=== PATIENT | male | born 1960 | race African-American/Black ===

== ENCOUNTER → 2017-09-08 | Outpatient (CLI) | payer OTHER ==
--- NOTE | 2017-09-08 15:55 | CT ---
EXAMINATION TYPE: CT chest abdomen w con DATE OF EXAM: 09/08/2017 INDICATION: Aortic Anuerysm COMPARISON: NONE CT DLP: 1334 mGycm CONTRAST: Performed without Oral Contrast and with IV Contrast, patient injected with 100 mL of Isovue 370. TECHNIQUE: Axial images at 5 mm thick sections. Reconstructed images in the coronal plane. Delayed images through the kidneys. FINDINGS: CT CHEST: Portion of the thyroid visualized is normal. No suspicious lung nodules or focal infiltrates are present. No enlarged mediastinal or hilar adenopathy is evident. The ascending aorta diameter at the level of the main pulmonary artery is 4.5 cm. Maximum AP diamete r of the aorta near the proximal aortic arch is 5.0 cm. Aorta tapers normally through the aortic arch and descending thoracic aorta. No dissections are identified. The main pulmonary artery diameter at the bifurcation is 2.[address] ABDOMEN: Liver: Normal Spleen: Normal Pancreas: Normal Adrenal glands: The adrenal glands are normal. Gallbladder: Small amount fluid may surround the gallbladder. The gallbladder is decompressed. Correl ate for cholecystitis. Kidneys: No masses are evident. No hydronephrosis is present. No cysts are present. There may be a nonobstructing renal stone in the anterior left mid kidney. Delayed images obtained through the kidn eys are unremarkable. Aorta: Vascular calcification is within the aorta. The ascending aorta diameter at the level of the main pulmonary artery is 4.5 cm. Maximum AP diameter of the aorta near the proximal aortic arch is 5 .0 cm. Aorta tapers normally through the aortic arch and descending thoracic aorta. No dissections ar e identified. Aorta tapers normally through the abdomen and bifurcates into common iliac arteries. Inferior vena cava: Normal. CT PELVIS: Loops of bowel within the abdomen and pelvis are normal. IMPRESSIONS: 1. Ascending thoracic aortic aneurysm measuring 5.0 cm in maximum AP diameter in the distal ascending aorta. The descending thoracic aorta and the abdominal aorta taper normally throughout the course wi thout aneurysmal dilatation. 2. Clinical consideration for acute cholecystitis is recommended.
== END | disposition home or self-care (01) ==
LOC: RADCTMAIN 14:56
PROVIDERS: ATTEND Internal Medicine Clinical Cardiac Electrophysiology
DX: I71.2 Thoracic aortic aneurysm, without rupture (principal)
CPT/HCPCS: 71260; 74160; Q9967

== ENCOUNTER 2019-10-17 15:44 | Emergency (ER) | payer OTHER ==
[2019-10-17 15:50] VITALS: RESP 18; TEMP 97.9
[2019-10-17] MEDS ORDERED: AZITHROMYCIN 500 MG TAB PO STA (16:02)
[2019-10-17] MEDS ORDERED: cefTRIAXone 250 MG VIAL IM STA (16:02)
[2019-10-17 16:24] VITALS: BP 122/89; PULSE 90
[2019-10-17 16:53] LABS: Appearance,Urine Cloudy (Clear); Bilirubin,Urine Negative (Negative); Blood,Urine Small (Negative); Budding Yeast,Urine Occasional /hpf; Color,Urine Yellow; Glucose,Urine (UA) Negative (Negative); Hyaline Casts,Urine 7 /lpf (0-2); Ketones,Urine Negative (Negative); Leukocyte Esterase,Urine Large (Negative); Mucus,Urine Rare /hpf; Nitrite,Urine Negative (Negative); Protein,Urine 1+ (Negative); RBC,Urine 18 /hpf (0-5); Specific Gravity,Urine 1.034 (1.001-1.035); Squamous Epithelial Cell,Urine 3 /hpf (0-4); WBC,Urine >182 /hpf (0-5)
[2019-10-17] MEDS ORDERED: CEPHALEXIN 500MG STARTER PACK 4 CAP BTL PO STA (17:04)
--- NOTE | 2019-10-17 17:22 | ED ---
General Adult HPI - General Chief complaint: Urogenital Stated complaint: nausea,UTI Time Seen by Provider: 10/17/19 15:51 Source: patient, RN notes reviewed Mode of arrival: ambulatory Limitations: no limitations - History of Present Illness Initial comments: 59-year-old male presents to the emergency department for a chief complaint of dysuria. Patient has a history of hyperlipidemia, hypertension. Patient states 3 days ago he had sexual intercourse with a new partner. States that he believes he got something from her. According to triage note patient also complained of dizziness however when I evaluated him he completely denies any symptoms of dizziness or any other constitutional symptoms. He denies fevers or chills. Denies any testicular or abdominal pain. Denies any discharge.Patient has no other complaints at this time including shortness of breath, chest pain, abdominal pain, nausea or vomiting, headache, or visual changes. - Related Data Home Medications Medication Instructions Recorded Confirmed Topiramate [Topamax] 25 mg PO BID 01/21/14 01/21/14 traZODone HCL [Desyrel] 100 mg PO HS 01/21/14 01/21/14 Amoxicillin 500 mg PO TID 01/22/14 01/22/14 Previous Rx's Medication Instructions Recorded Hydrochlorothiazide [Hydrodiuril] 25 mg PO DAILY #30 tab 01/26/14 Labetalol [Trandate] 200 mg PO BID #60 tab 01/26/14 Lisinopril [Zestril] 20 mg PO BID #30 tab 01/26/14 amLODIPine [Norvasc] 10 mg PO DAILY #30 tab 01/26/14 Cephalexin [Keflex] 500 mg PO Q8H 10 Days #30 cap 10/17/19 Allergies Allergy/AdvReac Type Severity Reaction Status Date / Time No Known Allergies Allergy Verified 01/21/14 17:53 Review of Systems ROS Statement: Those systems with pertinent positive or pertinent negative responses have been documented in the HPI. ROS Other: All systems not noted in ROS Statement are negative. Past Medical History Past Medical History: Hyperlipidemia, Hypertension History of Any Multi-Drug Resistant Organisms: None Reported Past Surgical History: Back Surgery Past Anesthesia/Blood Transfusion Reactions: No Reported Reaction Past Psychological History: No Psychological Hx Reported Smoking Status: Never smoker Past Alcohol Use History: None Reported Past Drug Use History: None Reported General Exam Limitations: no limitations General appearance: alert, in no apparent distress Head exam: Present: atraumatic, normocephalic, normal inspection Eye exam: Present: normal appearance, PERRL, EOMI. Absent: scleral icterus, conjunctival injection, periorbital swelling ENT exam: Present: normal exam, mucous membranes moist Neck exam: Present: normal inspection, full ROM. Absent: tenderness, meningismus, lymphadenopathy Respiratory exam: Present: normal lung sounds bilaterally. Absent: respiratory distress, wheezes, rales, rhonchi, stridor Cardiovascular Exam: Present: regular rate, normal rhythm, normal heart sounds. Absent: systolic murmur, diastolic murmur, rubs, gallop, clicks GI/Abdominal exam: Present: soft, normal bowel sounds. Absent: distended, tenderness, guarding, rebound, rigid Back exam: Absent: CVA tenderness (R), CVA tenderness (L) Neurological exam: Present: alert Course Vital Signs 10/17/19 10/17/19 15:46 16:22 Temperature 97.9 F Pulse Rate 76 90 Respiratory 18 18 Rate Blood Pressure 124/73 122/89 O2 Sat by Pulse 98 99 Oximetry Medical Decision Making - Medical Decision Making Vitals are stable. Physical exam is unremarkable. Patient does have 182 white blood cells with white blood cell clumps. Culture pending. Patient started on Keflex. Patient also wanted to be treated empirically for gonorrhea and chlamydia. And was given IM Rocephin and azithromycin. Gonorrhea Chlamydia and Trichomonas testing pending. Patient was given a dose of Keflex here in the emergency department. Will follow up with primary care and return for any worsening symptoms. - Lab Data Lab Results 10/17/19 Range/Units 16:00 Urine Color Yellow Urine Appearance Cloudy (Clear) Urine pH 6.0 (5.0-8.0) Ur Specific [place] 1.034 (1.001-1.035) Urine Protein 1+ H (Negative) Urine Glucose (UA) Negative (Negative) Urine Ketones Negative (Negative) Urine Blood Small H (Negative) Urine Nitrite Negative (Negative) Urine Bilirubin Negative (Negative) Urine Urobilinogen 2.0 (<2.0) mg/dL Ur Leukocyte Esterase Large H (Negative) Urine RBC 18 H (0-5) /hpf Urine WBC >182 H (0-5) /hpf Urine WBC Clumps Few H (None) /hpf Ur Squamous Epith Cells 3 (0-4) /hpf Hyaline Casts 7 H (0-2) /lpf Urine Mucus Rare H (None) /hpf Urine Yeast (Budding) Occasional H (None) /hpf Disposition Clinical Impression: Dysuria, Urinary tract infection Disposition: HOME SELF-CARE Condition: Good Instructions (If sedation given, give patient instructions): Urinary Tract Infection in Men (ED), Safe Sex (ED) Additional Instructions: Please follow up with primary care in 1-2 days. Follow up on culture results in the next few days as well. You will get a call if these are positive. If they're negative and you would still like to talk to someone you can call the emergency department and ask to speak to the follow-up nurse. If you have any worsening symptoms return to the emergency department. Prescriptions: Cephalexin [Keflex] 500 mg PO Q8H 10 Days #30 cap Is patient prescribed a controlled substance at d/c from ED?: No Referrals: Bella Mcmanus MD [Primary Care Provider] - 1-2 days Time of Disposition: 17:20
[2019-10-18 14:22] LABS: C. trachomatis,PCR Negative (Neg,Equiv); Chlamydia trachomatis Source Urine; N. gonorrhoeae,PCR Negative (Neg,Equiv); Neisseria Source Urine
== END 2019-10-17 17:29 | disposition home or self-care (01) ==
LOC: EC 15:44
DX: N39.0 Urinary tract infection, site not specified (principal)
CPT/HCPCS: 81001; 87491; 87591; 87086; 96374; 99283; J0696

== ENCOUNTER → 2021-01-16 | Outpatient (CLI) | payer OTHER ==
--- NOTE | 2021-01-16 14:26 | CT ---
EXAMINATION TYPE: CT angio chest DATE OF EXAM: 01/16/2021 COMPARISON: CT 09/08/2017 HISTORY: aneurysm CT DLP: 737.1 mGycm Automated exposure control for dose reduction was used. CONTRAST: CTA scan of the thorax is performed with IV Contrast, patient injected with 100 mL of Isovue 370, pul monary embolism protocol. MIP images are created and reviewed. 3D reconstructed images are created on an independent workstation and reviewed. FINDINGS: LUNGS: The lungs are stable, there is a focus of soft tissue which is mildly increased in conspicuity in possibly volume, axial image 45 cm transverse measurement of 15 mm as compared to prior when it m easured 14 mm x 2.8 cm in cephalad to caudal dimension, possible scarring present in the right lower lobe. There is no pleural effusion or pneumothorax seen. The tracheobronchial tree is patent. AORTA: Ascending aorta measures 4.5 cm. Aortic root shows motion artifact and is not dilated measuri ng approximately 3.6 cm. Proximal descending aorta measures 3.1 cm. At the level of the aortic hiatus the aorta measures approximately 2.7 cm.. MEDIASTINUM: There is satisfactory enhancement of the pulmonary artery and its branches, there is no CT evidence for pulmonary embolism. There are no greater than 1 cm hilar or mediastinal lymph nodes. No pericardial effusion is seen. OTHER: No additional significant abnormality is seen. IMPRESSION: AORTIC ANEURYSM MEASURES APPROXIMATELY 4.5 CM SIMILAR TO PRIOR EXAM, PREVIOUS MEASUREMENT IS THOUGHT TO BE OVERESTIMATED. Abnormal soft tissue in the right lower lobe may represent some focal scar, atel ectasis, difficult to exclude tumor, pulmonary consult versus PET CT is recommended. A Yellow level critical message alert has been initiated for Ross Serrano MD via the [employer] Critical Results System on 01/16/2021 2:23 PM. This message alert has been sent to María Ospina via the preferences provided by the clinician for the receipt of Radiology Critical Findings. Trenergi ID [id number].
== END | disposition home or self-care (01) ==
LOC: RADCTMAIN 12:04
PROVIDERS: ATTEND Internal Medicine Clinical Cardiac Electrophysiology
DX: I71.2 Thoracic aortic aneurysm, without rupture (principal)
CPT/HCPCS: 71275; Q9967

== ENCOUNTER 2021-12-19 12:12 | Emergency (ER) | payer OTHER ==
[2021-12-19] MEDS ORDERED: HYDROmorphone 0.5 MG/0.5 ML SYRINGE IVP STA (12:39)
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
[2021-12-19 13:07] LABS: Basophils % (A) 0 %; Eosinophils # (A) 0.1 k/uL (0-0.7); Eosinophils % (A) 3 %; HCT 36.1 % (39.0-53.0); Lymphocytes # (A) 1.4 k/uL (1.0-4.8); Lymphocytes % (A) 31 %; MCH 28.6 pg (25.0-35.0); MCHC 33.2 g/dL (31.0-37.0); MCV 86.3 fL (80.0-100.0); Mean Platelet Volume 7.3; Monocytes # (A) 0.3 k/uL (0-1.0); Monocytes % (A) 6 %; Neutrophils # (A) 2.6 k/uL (1.3-7.7); Neutrophils % (A) 58 %; Platelet Count 216 k/uL (150-450); RBC 4.18 m/uL (4.30-5.90); RDW 12.6 % (11.5-15.5); WBC 4.5 k/uL (3.8-10.6)
[2021-12-19 13:19] LABS: Partial Thromboplastin Time 26.9 sec (22.0-30.0); Prothrombin Time 10.6 sec (9.0-12.0)
[2021-12-19 13:20] LABS: ALT 21 U/L (4-49); AST 29 U/L (17-59); African American GFR (CKD) 51 (>60 ml/min/1.73 sqM); Albumin 4.2 g/dL (3.5-5.0); Alcohol <10 mg/dL; Alkaline Phosphatase 62 U/L (38-126); Anion Gap 8 mmol/L; Blood Urea Nitrogen 17 mg/dL (9-20); Calcium 9.3 mg/dL (8.4-10.2); Carbon Dioxide 25 mmol/L (22-30); Chloride 106 mmol/L (98-107); Glucose 84 mg/dL (74-99); Non-African American GFR(CKD) 44 (>60 ml/min/1.73 sqM); Sodium 139 mmol/L (137-145); Total Bilirubin 0.7 mg/dL (0.2-1.3); Total Protein 7.7 g/dL (6.3-8.2)
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
[2021-12-19] MEDS ORDERED: traMADol 50 MG STARTER PACK 3 TAB BTL PO STA (15:29)
[2021-12-19 15:46] VITALS: BP 132/78; PULSE 78; RESP 16; TEMP 97.9
== END 2021-12-19 15:45 | disposition home or self-care (01) ==
LOC: EC 12:12
DX: M79.652 Pain in left thigh (principal); M54.2 Cervicalgia; I10 Essential (primary) hypertension; E78.5 Hyperlipidemia, unspecified; Z79.899 Other long term (current) drug therapy; V23.4XXA Motorcycle driver injured in collision with car, pick-up truck or van in traffic accident, initial encounter; Y92.410 Unspecified street and highway as the place of occurrence of the external cause
CPT/HCPCS: 86900; 86901; 80053; 85025; 85610; 85730; 86850; 72170; 73552; 71045; 72125; 74177; 99284; 96374; G0480; J1170; Q9967; 80320

== ENCOUNTER 2021-12-28 13:28 | Emergency (ER) | payer OTHER ==
[2021-12-28 14:20] LABS: Basophils % (A) 0 %; Eosinophils # (A) 0.2 k/uL (0-0.7); Eosinophils % (A) 4 %; HCT 36.8 % (39.0-53.0); HGB 12.1 gm/dL (13.0-17.5); Lymphocytes # (A) 1.4 k/uL (1.0-4.8); Lymphocytes % (A) 29 %; MCH 29.3 pg (25.0-35.0); MCHC 32.8 g/dL (31.0-37.0); MCV 89.5 fL (80.0-100.0); Mean Platelet Volume 7.1; Monocytes # (A) 0.3 k/uL (0-1.0); Monocytes % (A) 5 %; Neutrophils % (A) 61 %; Platelet Count 220 k/uL (150-450); RBC 4.11 m/uL (4.30-5.90); RDW 13.2 % (11.5-15.5); WBC 4.9 k/uL (3.8-10.6)
[2021-12-28 14:21] VITALS: RESP 16
[2021-12-28 14:30] LABS: Calcium 9.1 mg/dL (8.4-10.2); Potassium 3.8 mmol/L (3.5-5.1); Total Bilirubin 0.5 mg/dL (0.2-1.3); Total Protein 7.2 g/dL (6.3-8.2)
[2021-12-28 14:35] LABS: Partial Thromboplastin Time 26.4 sec (22.0-30.0); Prothrombin Time 10.5 sec (9.0-12.0)
[2021-12-28] MEDS ORDERED: SODIUM CHLORIDE 0.9% 1,000 ML IV ONE (14:41)
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
--- NOTE | 2021-12-28 15:39 | CT ---
EXAMINATION TYPE: CT chest angio for PE CT DLP: 774.9 mGycm, Automated exposure control for dose reduction was used. DATE OF EXAM: 12/28/2021 3:21 PM COMPARISON: CTA chest 01/16/2021 . CLINICAL INDICATION:Male, 61 years old with history of chest pain, sob; elevated d-dimer TECHNIQUE/CONTRAST: CTA scan of the thorax is performed with IV Contrast, patient injected with 80 mL of Isovue 370, pulm onary embolism protocol. MIP images are created and reviewed. FINDINGS: Pulmonary Artery: There is no evidence for a filling defect within the pulmonary vasculature to sugge st acute pulmonary embolism. The pulmonary artery is of normal size. Lungs/Pleura: No evidence of pleural effusion or pneumothorax. Stable right lower lobe nodular densit y measuring 7 mm (series 406, image 100). Stable nodular density within the medial right lower lobe m easuring 14 mm (series 406, image 111). No new or enlarging pulmonary nodules. Calcified granuloma wi thin the right lower lobe. Airway: Large airways are patent. Heart: The heart is mildly enlarged for size. No pericardial effusion. Vasculature: Mild atherosclerotic calcifications are present throughout the aorta and its branches. S table 4.5 cm ascending aortic aneurysm. Mediastinum: No gross evidence of adenopathy. Musculoskeletal: No acute osseous abnormalities. Diffuse skeletal idiopathic hyperostosis is demonstr ated. Soft Tissues: Unremarkable. Lower neck: No significant findings. Upper Abdomen: No significant findings. IMPRESSION: 1. No evidence of pulmonary embolism or acute thoracic process. 2. Stable right lower lobe nonspecific nodular densities from prior examination in 2020 prior examina tion. Etiology significant may represent focal scar versus atelectasis with malignancy not excluded. 3. Stable 4.5 cm ascending aortic aneurysm.
[2021-12-28 16:47] VITALS: BP 138/71; PULSE 66; TEMP 97.7
== END 2021-12-28 16:52 | disposition home or self-care (01) ==
LOC: EC 13:28
DX: R07.89 Other chest pain (principal); I10 Essential (primary) hypertension; E78.5 Hyperlipidemia, unspecified; Z79.899 Other long term (current) drug therapy; V19.9XXA Pedal cyclist (driver) (passenger) injured in unspecified traffic accident, initial encounter
CPT/HCPCS: 99284; 96360; 36415; 93005; 85379; 80053; 84484; 85025; 85610; 85730; 71275; Q9967

== ENCOUNTER 2022-04-16 18:48 | Emergency (ER) | payer OTHER ==
[2022-04-16 19:17] VITALS: TEMP 98.7
[2022-04-16] MEDS ORDERED: LIDOCAINE 1% INJ 10MG/ML (30 ML VIAL-PF) SQ ONE (20:28)
[2022-04-16] MEDS ORDERED: SULFAMETHOX-TMP 800-160MG 1 EACH TAB PO STA (20:29)
--- NOTE | 2022-04-16 20:35 | ED ---
Skin/Abscess/FB HPI - General Chief complaint: Skin/Abscess/Foreign Body Stated complaint: finger infection Time Seen by Provider: 04/16/22 20:24 Source: patient, RN notes reviewed Mode of arrival: ambulatory Limitations: no limitations - History of Present Illness Initial comments: This is a pleasant, [id number] 62-year-old male who clipped his fingernail a few days ago and developed an infection to the distal aspect of his right fourth finger. Patient states it has progressed over the past few days. Describing a dull pain was exacerbated by movement and palpation. Alleviated by rest. There is no pain proximal to the PIP joint. No pain or abnormality in the palmar aspect of hand. Patient denies any axillary adenopathy. No fever or chills. No other symptomology. No history of diabetes or immunosuppression. No headache, no fever or chills, no changes in vision or hearing, no sore throat or difficulty with speech, no neck pain, no chest pain or shortness of breath, no abdominal pain, no nausea or vomiting, no changes in urination or bowel movements, no numbness or tingling, no skin rashes or lesions. Past medical, surgical, social, and family history reviewed. - Related Data Home Medications Medication Instructions Recorded Confirmed Topiramate [Topamax] 25 mg PO DIRECTED 01/21/14 01/21/14 traZODone HCL [Desyrel] 100 mg PO DIRECTED 01/21/14 01/21/14 Atorvastatin [Lipitor] 20 mg PO HS 12/19/21 12/19/21 HYDROcodone/APAP 5-325MG [[place] 1 tab PO TID PRN 12/19/21 12/19/21 5-325] Labetalol [Trandate] 200 mg PO TID 12/19/21 12/19/21 hydroCHLOROthiazide [Hydrodiuril] 25 mg PO DIRECTED 12/19/21 lisinopriL [Zestril] 20 mg PO DIRECTED 12/19/21 Previous Rx's Medication Instructions Recorded amLODIPine [Norvasc] 10 mg PO DAILY #30 tab 01/26/14 Acetaminophen Tab [Tylenol Tab] 500 mg PO Q6H PRN #24 tablet 04/16/22 Ibuprofen [Motrin] 600 mg PO Q8HR PRN #20 tab 11/09/22 Sulfamethox-Tmp 800-160Mg [Bactrim 2 each PO Q12HR 10 Days tab 04/16/22 DS 800-160 mg] Allergies Allergy/AdvReac Type Severity Reaction Status Date / Time No Known Allergies Allergy Verified 04/16/22 19:17 Review of Systems ROS Statement: Those systems with pertinent positive or pertinent negative responses have been documented in the HPI. ROS Other: All systems not noted in ROS Statement are negative. Past Medical History Past Medical History: Hyperlipidemia, Hypertension History of Any Multi-Drug Resistant Organisms: MRSA Date of last positivie culture/infection: 10/17/19 MDRO Source:: MRSA URINE Past Surgical History: Back Surgery Past Anesthesia/Blood Transfusion Reactions: No Reported Reaction Past Psychological History: No Psychological Hx Reported Smoking Status: Never smoker Past Alcohol Use History: None Reported Past Drug Use History: None Reported General Exam Limitations: no limitations General appearance: alert, in no apparent distress Head exam: Present: atraumatic, normocephalic, normal inspection Eye exam: Present: normal appearance, PERRL, EOMI. Absent: scleral icterus, conjunctival injection, periorbital swelling ENT exam: Present: normal exam, mucous membranes moist Neck exam: Present: normal inspection, full ROM. Absent: tenderness, meningismus, lymphadenopathy Respiratory exam: Present: normal lung sounds bilaterally. Absent: respiratory distress, wheezes, rales, rhonchi, stridor Cardiovascular Exam: Present: regular rate, normal rhythm, normal heart sounds. Absent: systolic murmur, diastolic murmur, rubs, gallop, clicks GI/Abdominal exam: Present: soft. Absent: distended, tenderness, guarding, rebound, rigid Extremities exam: Present: tenderness (Capillary refill less than 2 seconds. Pulses are intact), normal capillary refill, other (Patient has edema to the distal aspect of the right fourth finger with fluctuance and overlying erythema. Patient has no tenderness along the flexor tendon sheath. Able to fully flex at the PIP and MCP joints. Range of motion at the PIP is limited secondary to edema and pain. No foreign body ). Absent: normal inspection, full ROM Back exam: Present: normal inspection. Absent: rash noted Neurological exam: Present: alert, oriented X3, CN II-XII intact Psychiatric exam: Present: normal affect, normal mood Skin exam: Present: warm, dry, intact, normal color. Absent: rash Course Vital Signs 04/16/22 19:15 Temperature 98.7 F Pulse Rate 86 Respiratory 20 Rate Blood Pressure 179/77 O2 Sat by Pulse 97 Oximetry Procedures - Incision & Drainage Consent Obtained: verbal consent Site: upper extremity (Right ring fingerparonychia) Size (cm): 2 Anesthetic Used: lidocaine 1% Amount (mLs): 3 I&D Cleaning Method: Betadine Sterile Field Used?: Yes Scalpel Used: #11 Needle Aspiration Performed?: No Irrigation Performed?: Yes I&D Drainage Obtained: Pus, Blood Culture Obtained?: Yes Patient Tolerated Procedure: well, no complications - Nerve Block Consent Obtained: verbal consent Local Anesthetic Used: Lidocaine 1% Side: right Nerve Blocks: digital (Right ring finger) Procedure Successful: Yes Complications: none Patient Tolerated Procedure: well, no complications Medical Decision Making - Medical Decision Making Patient symptomology consistent with a paronychia with secondary cellulitis. We will set the patient up for incision and drainage. Both aerobic and anaerobic wound cultures will be obtained. Bactrim DS 2 double strength tablets twice a day for 7 days. Patient symptomology is not consistent with flexor tenosynovitis. Patient has negative Kanavel's signs. Patient counseled on conservative therapy. Warm compresses, antibiotics, follow-up. Patient was told to return to the ER for any signs or symptoms worsen. Told to return immediately if any other problems arise. All questions answered. Treatment plan discussed. Patient in agreement Every effort has been made to ensure accuracy of this dictation. However, due to the limitations of electronic medical records and dictation devices, errors in charting still occur. [employer] [address]. Durbin Disposition Clinical Impression: Paronychia of right ring finger, Elevated blood pressure reading Disposition: HOME SELF-CARE Condition: Good Instructions (If sedation given, give patient instructions): Paronychia (ED) Additional Instructions: Warm compresses 4 times daily with warm soapy water, 10-15 minutes at a time. Take antibiotics as directed. Follow-up with her regular doctor in 2 days for wound check. Follow-up with your regular physician as directed. Return to the ER immediately if any symptoms worsen, new symptoms arise, or any other problems develop. Check with your regular physician for blood pressure recheck, her blood pressure was elevated today. Prescriptions: Sulfamethox-Tmp 800-160Mg [Bactrim DS 800-160 mg] 2 each PO Q12HR 10 Days tab Ibuprofen [Motrin] 600 mg PO Q8HR PRN #20 tab PRN Reason: Pain Acetaminophen Tab [Tylenol Tab] 500 mg PO Q6H PRN #24 tablet PRN Reason: Pain Is patient prescribed a controlled substance at d/c from ED?: No Referrals: José Samuels MD [Primary Care Provider] - 04/18/22 Time of Disposition: 21:22
[2022-04-16] MEDS ORDERED: BACITRACIN ZINC 500 UNIT/GM OINT 28.4 GM TUBE TOPICAL ONE (21:30)
[2022-04-16 22:03] VITALS: BP 156/74; PULSE 74; RESP 15
== END 2022-04-16 22:09 | disposition home or self-care (01) ==
LOC: EC 18:48
DX: L03.011 Cellulitis of right finger (principal); E78.5 Hyperlipidemia, unspecified; I10 Essential (primary) hypertension; Z79.83 Long term (current) use of bisphosphonates
CPT/HCPCS: 99283; J2001

== ENCOUNTER 2022-04-19 15:03 | Emergency (ER) | payer OTHER ==
[2022-04-19 15:13] VITALS: TEMP 98.7
[2022-04-19 16:32] VITALS: RESP 18
--- NOTE | 2022-04-19 16:44 | ED ---
General Adult HPI - General Chief complaint: Head Injury Stated complaint: Fall, Head injury Time Seen by Provider: 04/19/22 16:30 Source: patient, RN notes reviewed Mode of arrival: ambulatory Limitations: no limitations - History of Present Illness Initial comments: 62-year-old male who presents to the emergency department for evaluation of head injury, sustained last night during a fall. Patient states he rolled out of bed around 11pm yesterday and struck his head on the floor. States he was able to get up independently. Reports he became concerned this evening as he realized the area was swollen and tender. No facial pain. Denies loss of consciousness, dizziness, lightheadedness, gait disturbance, vision changes, nausea, or vomiting. Denies any other injuries. Does not take blood thinning medicines. - Related Data Home Medications Medication Instructions Recorded Confirmed Topiramate [Topamax] 25 mg PO DIRECTED 01/21/14 01/21/14 traZODone HCL [Desyrel] 100 mg PO DIRECTED 01/21/14 01/21/14 Atorvastatin [Lipitor] 20 mg PO HS 12/19/21 12/19/21 HYDROcodone/APAP 5-325MG [[place] 1 tab PO TID PRN 12/19/21 12/19/21 5-325] Labetalol [Trandate] 200 mg PO TID 12/19/21 12/19/21 hydroCHLOROthiazide [Hydrodiuril] 25 mg PO DIRECTED 12/19/21 lisinopriL [Zestril] 20 mg PO DIRECTED 12/19/21 Previous Rx's Medication Instructions Recorded amLODIPine [Norvasc] 10 mg PO DAILY #30 tab 01/26/14 Acetaminophen Tab [Tylenol Tab] 500 mg PO Q6H PRN #24 tablet 04/16/22 Ibuprofen [Motrin] 600 mg PO Q8HR PRN #20 tab 04/16/22 Sulfamethox-Tmp 800-160Mg [Bactrim 2 each PO Q12HR 10 Days tab 04/16/22 DS 800-160 mg] Allergies Allergy/AdvReac Type Severity Reaction Status Date / Time No Known Allergies Allergy Verified 04/19/22 15:13 Review of Systems ROS Statement: Those systems with pertinent positive or pertinent negative responses have been documented in the HPI. ROS Other: All systems not noted in ROS Statement are negative. Past Medical History Past Medical History: Hyperlipidemia, Hypertension History of Any Multi-Drug Resistant Organisms: MRSA Date of last positivie culture/infection: 10/17/19 MDRO Source:: MRSA URINE Past Surgical History: Back Surgery Past Anesthesia/Blood Transfusion Reactions: No Reported Reaction Past Psychological History: No Psychological Hx Reported Smoking Status: Never smoker Past Alcohol Use History: None Reported Past Drug Use History: None Reported General Exam Limitations: no limitations General appearance: alert, in no apparent distress Head exam: Present: normocephalic (Well-developed, well-nourished male in no acute distress. Initial temperature 98.7, pulse 63, respirations 20, blood pressure 125/66 and pulse ox 99% on room air.), other (hematoma measuring approximately 4cm in diameter left frontal scalp; no contusion, discoloration, abrasion, or laceration.) Eye exam: Present: normal appearance, PERRL, EOMI. Absent: scleral icterus, conjunctival injection, nystagmus, periorbital swelling, periorbital tenderness ENT exam: Present: normal exam, normal oropharynx, mucous membranes moist, TM's normal bilaterally, normal external ear exam Expanded Ear exam: Absent: auricular hematoma, auricular trauma Neck exam: Present: normal inspection, full ROM. Absent: tenderness, meningismus, lymphadenopathy Respiratory exam: Present: normal lung sounds bilaterally. Absent: respiratory distress, wheezes, rales, rhonchi, stridor, chest wall tenderness Cardiovascular Exam: Present: regular rate, normal rhythm, normal heart sounds. Absent: systolic murmur, diastolic murmur, rubs, gallop, clicks GI/Abdominal exam: Present: soft, normal bowel sounds. Absent: distended, tenderness, guarding, rebound, rigid Back exam: Present: normal inspection. Absent: paraspinal tenderness, vertebral tenderness Neurological exam: Present: alert, oriented X3, CN II-XII intact, normal gait Expanded Patient oriented to: Present: person, place, time Speech: Present: fluid speech Cranial nerves: EOM's Intact: Normal, Nystagmus: Normal Cerebellar function: Romberg: Normal Motor strength exam: RUE: 5, LUE: 5, RLE: 5, LLE: 5 Eye Response: (4) open spontaneously Motor Response: (6) obeys commands Verbal Response: (5) oriented [employer] Total: 15 Psychiatric exam: Present: normal affect, normal mood Course Vital Signs 04/19/22 04/19/22 04/19/22 15:10 16:29 18:40 Temperature 98.7 F Pulse Rate 63 64 63 Respiratory 20 18 18 Rate Blood Pressure 125/66 137/74 151/80 O2 Sat by Pulse 99 98 98 Oximetry Medical Decision Making - Medical Decision Making This is a 62-year-old male with a past medical history of hypertension presents to the emergency department for evaluation of head injury status post from bed last night. Upon exam, patient is well-appearing and in no acute distress. Patient is neurologically intact with no focal deficits. EOMI. PERRL. He does have a hematoma on the frontal region of the left side of the scalp. No blood thinning medications. Pain is minimal. Patient has had no vomiting. CT the brain was obtained with no acute findings. Patient will be discharged home to follow up with his PCP as needed. Return parameters were discussed in detail. Patient verbalizes understanding and agrees with this plan. Attending: Jamey - Radiology Data Radiology results: report reviewed, image reviewed CT of the brain was obtained. Report was reviewed in its entirety. Impression per Dr. Ji is encephalomalacia right posterior parietal lobe which is more obvious on last exam. There are smaller areas of encephalomalacia left posterior parietal lobe without change. Periventricular microvascular ischemia. No acute intracranial abnormality. Disposition Clinical Impression: Hematoma of scalp Disposition: HOME SELF-CARE Condition: Stable Instructions (If sedation given, give patient instructions): Head Injury (ED), Hematoma (ED) Additional Instructions: May apply ice to sore area if needed. Take Tylenol if needed for headache. Follow up with your PCP for a recheck next week. Return to the emergency department with any change in mental status, vision, or repeated episodes of vomiting Is patient prescribed a controlled substance at d/c from ED?: No Referrals: José Samuels MD [Primary Care Provider] - 1-2 days Time of Disposition: 18:31
--- NOTE | 2022-04-19 17:12 | CT ---
EXAMINATION TYPE: CT brain wo con DATE OF EXAM: 04/19/2022 COMPARISON: 10/28/2010 HISTORY: fall, hit head, pain in left forehead CT DLP: 1137.4 mGycm Automated exposure control for dose reduction was used. Images obtained of the brain with no contrast. There is a 3 cm area of arias-white matter hypodensity in the right posterior parietal lobe consistent with encephalomalacia. There is periventricular white matter hypodensity around the lateral ventricl es. There is no mass effect or midline shift. No sign of intracranial hemorrhage. There is hyperostos is frontalis. Skull base is intact. IMPRESSION: Encephalomalacia right posterior parietal lobe which is more obvious than last exam. There are smalle r area of encephalomalacia left posterior parietal lobe without change. Periventricular microvascular ischemia. No acute intracranial abnormality.
[2022-04-19 18:43] VITALS: BP 151/80; PULSE 63
== END 2022-04-19 18:54 | disposition home or self-care (01) ==
LOC: EC 15:03
DX: S00.03XA Contusion of scalp, initial encounter (principal); E78.5 Hyperlipidemia, unspecified; I10 Essential (primary) hypertension; Z79.899 Other long term (current) drug therapy; W06.XXXA Fall from bed, initial encounter
CPT/HCPCS: 70450; 99284

== ENCOUNTER 2022-04-27 11:05 | Emergency (ER) | payer OTHER ==
[2022-04-27 11:17] VITALS: TEMP 98
--- NOTE | 2022-04-27 13:17 | XR ---
EXAMINATION TYPE: XR finger RT DATE OF EXAM: 04/27/2022 COMPARISON: NONE HISTORY: 62-year-old male pain, untreated cellulitis, rule out osteomyelitis TECHNIQUE: 3 views coned down right ring finger FINDINGS: There appears to be some form into the nailbed. No retained radiopaque foreign body. No periostitis o r osteolysis. No acute fracture, subluxation, dislocation. IMPRESSION: Some deformity to the nailbed. Some soft tissue swelling distal aspect of the finger. No underlying a cute osseous abnormality seen.
[2022-04-27 13:53] LABS: Basophils % (A) 0 %; Eosinophils # (A) 0.2 k/uL (0-0.7); Eosinophils % (A) 2 %; HCT 37.9 % (39.0-53.0); HGB 12.7 gm/dL (13.0-17.5); Lymphocytes # (A) 1.7 k/uL (1.0-4.8); Lymphocytes % (A) 27 %; MCH 28.4 pg (25.0-35.0); MCHC 33.5 g/dL (31.0-37.0); MCV 84.6 fL (80.0-100.0); Mean Platelet Volume 6.9; Monocytes # (A) 0.4 k/uL (0-1.0); Monocytes % (A) 6 %; Neutrophils # (A) 3.9 k/uL (1.3-7.7); Neutrophils % (A) 63 %; Platelet Count 245 k/uL (150-450); RBC 4.48 m/uL (4.30-5.90); RDW 12.2 % (11.5-15.5); WBC 6.1 k/uL (3.8-10.6)
[2022-04-27] MEDS ORDERED: ACETAMINOPHEN TAB 500 MG TAB PO STA (13:53)
[2022-04-27 14:09] LABS: Albumin 4.3 g/dL (3.5-5.0); Calcium 9.4 mg/dL (8.4-10.2); Total Bilirubin 0.3 mg/dL (0.2-1.3); Total Protein 7.6 g/dL (6.3-8.2)
[2022-04-27] MEDS ORDERED: SODIUM CHLORIDE 0.9% 1,000 ML IV STA (14:18)
[2022-04-27] MEDS ORDERED: SULFAMETHOX-TMP 800-160MG 1 EACH TAB PO STA (14:35)
--- NOTE | 2022-04-27 14:44 | ED ---
Skin/Abscess/FB HPI - General Chief complaint: Skin/Abscess/Foreign Body Stated complaint: finger infection-revisit Time Seen by Provider: 04/27/22 12:16 Source: patient Mode of arrival: ambulatory Limitations: no limitations - History of Present Illness Initial comments: Patient is a 62-year-old male who presents to the emergency department with a chief complaint of right ring finger infection. Patient was recently evaluated in our emergency department on 04/16 where paronychia was drained. Patient was discharged with antibiotics due to overlying cellulitis. Patient states he never received this antibiotic at the pharmacy. Patient reports worsening redness and swelling of his finger. Reports minimal pain. Taken Tylenol and Motrin with good pain control. Denies numbness, tingling, nausea, vomiting. - Related Data Home Medications Medication Instructions Recorded Confirmed Topiramate [Topamax] 25 mg PO DIRECTED 01/21/14 01/21/14 traZODone HCL [Desyrel] 100 mg PO DIRECTED 01/21/14 01/21/14 Atorvastatin [Lipitor] 20 mg PO HS 12/19/21 12/19/21 HYDROcodone/APAP 5-325MG [[place] 1 tab PO TID PRN 12/19/21 12/19/21 5-325] Labetalol [Trandate] 200 mg PO TID 12/19/21 12/19/21 hydroCHLOROthiazide [Hydrodiuril] 25 mg PO DIRECTED 12/19/21 lisinopriL [Zestril] 20 mg PO DIRECTED 12/19/21 Previous Rx's Medication Instructions Recorded amLODIPine [Norvasc] 10 mg PO DAILY #30 tab 01/26/14 Acetaminophen Tab [Tylenol Tab] 500 mg PO Q6H PRN #24 tablet 04/16/22 Ibuprofen [Motrin] 600 mg PO Q8HR PRN #20 tab 04/16/22 Sulfamethox-Tmp 800-160Mg [Bactrim 2 each PO Q12HR 10 Days tab 04/16/22 DS 800-160 mg] Cephalexin [Keflex] 500 mg PO Q6HR #40 cap 04/27/22 Sulfamethox-Tmp 800-160Mg [Bactrim 1 tab PO Q12HR 10 Days #20 tab 04/27/22 DS 800-160 mg] Allergies Allergy/AdvReac Type Severity Reaction Status Date / Time No Known Allergies Allergy Verified 04/27/22 11:17 Review of Systems ROS Statement: Those systems with pertinent positive or pertinent negative responses have been documented in the HPI. ROS Other: All systems not noted in ROS Statement are negative. Past Medical History Past Medical History: Hyperlipidemia, Hypertension History of Any Multi-Drug Resistant Organisms: MRSA Date of last positivie culture/infection: 10/17/19 MDRO Source:: MRSA URINE Past Surgical History: Back Surgery Past Anesthesia/Blood Transfusion Reactions: No Reported Reaction Past Psychological History: No Psychological Hx Reported Smoking Status: Never smoker Past Alcohol Use History: None Reported Past Drug Use History: None Reported General Exam Limitations: no limitations General appearance: alert, in no apparent distress Eye exam: Present: normal appearance, PERRL, EOMI. Absent: scleral icterus, conjunctival injection, periorbital swelling Respiratory exam: Present: normal lung sounds bilaterally. Absent: respiratory distress, wheezes, rales, rhonchi, stridor Cardiovascular Exam: Present: regular rate, normal rhythm, normal heart sounds. Absent: systolic murmur, diastolic murmur, rubs, gallop, clicks Extremities exam: Present: other (swelling and erythema of right ring finger jus t distal to the PIP joint. Loss of nail with minimal purulent drainage. No drainable abscess.) Neurological exam: Present: alert, oriented X3, CN II-XII intact Psychiatric exam: Present: normal affect, normal mood Skin exam: Present: warm, dry, intact, normal color. Absent: rash Course Vital Signs 04/27/22 11:14 Temperature 98 F Pulse Rate 68 Respiratory 18 Rate Blood Pressure 132/74 O2 Sat by Pulse 100 Oximetry Medical Decision Making - Medical Decision Making This is a 62-year-old male presenting for worsening infection of his right ring finger. Physical exam reveals cellulitis of the right ring finger with loss of nail. There is no extension into the hand. There is minimal purulent drainage from the nail bed. No drainable abscess. No [place] signs. No systemic signs or symptoms. Laboratory studies obtained. There is no leukocytosis. Drainage cultured. Creatinine is 1.51, consistent with previous visits. X-ray obtained and interpreted by me which does not detect osteomyelitis. Patient given fluids and Rocephin. Patient looks well, no systemic illness, can manage symptoms at home with strict return parameters. Will be discharged with Keflex and Bactrim. Dr. Streeter is my attending. - Lab Data Result diagrams: 04/27/22 13:25 04/27/22 13:25 Lab Results 04/27/22 04/27/22 Range/Units 13:25 13:25 WBC 6.1 (3.8-10.6) k/uL RBC 4.48 (4.30-5.90) m/uL Hgb 12.7 L (13.0-17.5) gm/dL Hct 37.9 L (39.0-53.0) % MCV 84.6 (80.0-100.0) fL MCH 28.4 (25.0-35.0) pg MCHC 33.5 (31.0-37.0) g/dL RDW 12.2 (11.5-15.5) % Plt Count 245 (150-450) k/uL MPV 6.9 Neutrophils % 63 % Lymphocytes % 27 % Monocytes % 6 % Eosinophils % 2 % Basophils % 0 % Neutrophils # 3.9 (1.3-7.7) k/uL Lymphocytes # 1.7 (1.0-4.8) k/uL Monocytes # 0.4 (0-1.0) k/uL Eosinophils # 0.2 (0-0.7) k/uL Basophils # 0.0 (0-0.2) k/uL Sodium 141 (137-145) mmol/L Potassium 4.0 (3.5-5.1) mmol/L Chloride 108 H (98-107) mmol/L Carbon Dioxide 25 (22-30) mmol/L Anion Gap 8 mmol/L BUN 14 (9-20) mg/dL Creatinine 1.51 H (0.66-1.25) mg/dL Est GFR (CKD-EPI)AfAm 57 (>60 ml/min/1.73 sqM) Est GFR (CKD-EPI)NonAf 49 (>60 ml/min/1.73 sqM) Glucose 87 (74-99) mg/dL Calcium 9.4 (8.4-10.2) mg/dL Total Bilirubin 0.3 (0.2-1.3) mg/dL AST 32 (17-59) U/L ALT 32 (4-49) U/L Alkaline Phosphatase 68 (38-126) U/L Total Protein 7.6 (6.3-8.2) g/dL Albumin 4.3 (3.5-5.0) g/dL Disposition Clinical Impression: Cellulitis of finger, right Disposition: HOME SELF-CARE Condition: Good Instructions (If sedation given, give patient instructions): Cellulitis (ED) Additional Instructions: Keep wound clean and dry. Please keep wound uncovered. Please take antibiotics as directed. Both Bactrim and Keflex are 2 antibiotics that were sent to your pharmacy. Continue Tylenol and Motrin for pain. Return to the emergency department if you experience new, concerning, or worsening symptoms, including but not limited to increased redness, swelling, drainage from the wound, fever/chills, nausea, vomiting. Prescriptions: Sulfamethox-Tmp 800-160Mg [Bactrim DS 800-160 mg] 1 tab PO Q12HR 10 Days #20 tab Cephalexin [Keflex] 500 mg PO Q6HR #40 cap Is patient prescribed a controlled substance at d/c from ED?: No Referrals: José Samuels MD [Primary Care Provider] - 1-2 days Time of Disposition: 15:09
[2022-04-27 17:13] VITALS: BP 127/74; PULSE 78; RESP 16
== END 2022-04-27 17:14 | disposition home or self-care (01) ==
LOC: EC 11:05
DX: L03.011 Cellulitis of right finger (principal); I10 Essential (primary) hypertension; E78.5 Hyperlipidemia, unspecified; Z79.899 Other long term (current) drug therapy
CPT/HCPCS: 36415; 80053; 85025; 87040; 87070; 87205; 73140; 99283; 96365; 96361 ×2; J0696; 87077; 87186

== ENCOUNTER 2022-08-26 03:55 | Emergency (ER) | payer OTHER ==
[2022-08-26 04:22] VITALS: RESP 16; TEMP 96.2
[2022-08-26 05:01] LABS: Basophils % (A) 0 %; Eosinophils # (A) 0.1 k/uL (0-0.7); Eosinophils % (A) 2 %; HCT 34.3 % (39.0-53.0); Lymphocytes # (A) 1.9 k/uL (1.0-4.8); Lymphocytes % (A) 37 %; MCH 29.7 pg (25.0-35.0); MCHC 35.1 g/dL (31.0-37.0); MCV 84.6 fL (80.0-100.0); Mean Platelet Volume 6.9; Monocytes # (A) 0.3 k/uL (0-1.0); Monocytes % (A) 6 %; Neutrophils # (A) 2.8 k/uL (1.3-7.7); Neutrophils % (A) 53 %; Platelet Count 206 k/uL (150-450); RBC 4.05 m/uL (4.30-5.90); RDW 12.5 % (11.5-15.5); WBC 5.2 k/uL (3.8-10.6)
--- NOTE | 2022-08-26 05:03 | XR ---
EXAMINATION TYPE: XR chest 2V DATE OF EXAM: 08/26/2022 COMPARISON: 12/19/2021 HISTORY: Syncope TECHNIQUE: 2 views FINDINGS: Heart and mediastinum are normal. Lungs are clear of consolidation. There are no hilar mass es. There are small linear density right lung base. No pleural effusion. Bony thorax is intact IMPRESSION: Mild subsegmental atelectasis right lung base. Normal heart.
--- NOTE | 2022-08-26 05:07 | ED ---
General Adult HPI - General Chief complaint: Syncope Stated complaint: Chest Pain, Syncope Time Seen by Provider: 08/26/22 04:00 Source: patient Mode of arrival: EMS Limitations: no limitations - History of Present Illness Initial comments: This is a 62-year-old male with a past medical history including hypertension presents emergency department via EMS after syncopal episode. The patient reported that he was sleeping when somebody knocked on his window, he got up quickly and only remembers waking up when his friend was trying to pick him up off the floor. The patient stated this is happened previously 3 months ago when he stood up quickly from bed and had a syncopal episode. The patient denied any presyncopal symptoms including any lightheadedness, dizziness or palpitations. The patient stated that he did not have any current pain and stated that he felt back to baseline. The patient denied any chest pain, shortness of breath or any lightheadedness. The patient was resting in bed comfortably. - Related Data Home Medications Medication Instructions Recorded Confirmed Topiramate [Topamax] 25 mg PO DIRECTED 01/21/14 01/21/14 traZODone HCL [Desyrel] 100 mg PO DIRECTED 01/21/14 01/21/14 Atorvastatin [Lipitor] 20 mg PO HS 12/19/21 12/19/21 HYDROcodone/APAP 5-325MG [[place] 1 tab PO TID PRN 12/19/21 12/19/21 5-325] Labetalol [Trandate] 200 mg PO TID 12/19/21 12/19/21 hydroCHLOROthiazide [Hydrodiuril] 25 mg PO DIRECTED 12/19/21 lisinopriL [Zestril] 20 mg PO DIRECTED 12/19/21 Previous Rx's Medication Instructions Recorded amLODIPine [Norvasc] 10 mg PO DAILY #30 tab 01/26/14 Acetaminophen Tab [Tylenol Tab] 500 mg PO Q6H PRN #24 tablet 04/16/22 Ibuprofen [Motrin] 600 mg PO Q8HR PRN #20 tab 04/16/22 Sulfamethox-Tmp 800-160Mg [Bactrim 2 each PO Q12HR 10 Days tab 04/16/22 DS 800-160 mg] Cephalexin [Keflex] 500 mg PO Q6HR #40 cap 11/20/22 Sulfamethox-Tmp 800-160Mg [Bactrim 1 tab PO Q12HR 10 Days #20 tab 04/27/22 DS 800-160 mg] Allergies Allergy/AdvReac Type Severity Reaction Status Date / Time No Known Allergies Allergy Verified 04/27/22 11:17 Review of Systems ROS Statement: Those systems with pertinent positive or pertinent negative responses have been documented in the HPI. ROS Other: All systems not noted in ROS Statement are negative. Past Medical History Past Medical History: Hyperlipidemia, Hypertension History of Any Multi-Drug Resistant Organisms: MRSA Date of last positivie culture/infection: 04/27/22 MDRO Source:: Finger Right Fourth Past Surgical History: Back Surgery Past Anesthesia/Blood Transfusion Reactions: No Reported Reaction Past Psychological History: No Psychological Hx Reported Smoking Status: Never smoker Past Alcohol Use History: None Reported Past Drug Use History: None Reported General Exam Limitations: no limitations General appearance: alert, in no apparent distress Head exam: Present: atraumatic, normocephalic, normal inspection Eye exam: Present: normal appearance, PERRL Pupils: Present: normal accommodation ENT exam: Present: normal exam, normal oropharynx, mucous membranes moist Neck exam: Present: normal inspection, full ROM Respiratory exam: Present: normal lung sounds bilaterally Cardiovascular Exam: Present: regular rate, normal rhythm, normal heart sounds GI/Abdominal exam: Present: soft, normal bowel sounds Extremities exam: Present: normal inspection, full ROM Back exam: Present: normal inspection, full ROM Neurological exam: Present: alert, oriented X3, CN II-XII intact Psychiatric exam: Present: normal affect, normal mood Skin exam: Present: warm, dry Course Vital Signs 08/26/22 04:17 Temperature 96.2 F L Pulse Rate 66 Respiratory 16 Rate Blood Pressure 126/71 O2 Sat by Pulse 99 Oximetry EKG Findings - EKG Comments: EKG Findings:: An EKG was obtained and was interpreted by myself showing a rate of 64, [place] interval of 181, QS duration of 157 and QTC of 423. This EKG showed a normal sinus rhythm with no ST segment elevation or depression noted. Medical Decision Making - Medical Decision Making Was pt. sent in by a medical professional or institution (, PA, LABORER [employer]ACHINE, urgent care, hospital, or senior living...) When possible be specific @ -No Did you speak to anyone other than the patient for history (EMS, parent, family, police, friend...)? What history was obtained from this source @ -No Did you review nursing and triage notes (agree or disagree)? Why? @ -I reviewed and agree with nursing and triage notes Were old charts reviewed (outside hosp., previous admission, EMS record, old EKG, old radiological studies, urgent care reports/EKG's, senior living records)? Report findings @ -No old charts were reviewed Differential Diagnosis (chest pain, altered mental status, abdominal pain women, abdominal pain men, vaginal bleeding, weakness, fever, dyspnea, syncope, headache, dizziness, GI bleed, back pain, seizure, CVA, palpatations, mental health)? @ -Vasovagal syncope, ACS, dehydration EKG interpreted by me (3pts min.). @ -As above X-rays interpreted by me (1pt min.). @ -Chest x-ray was obtained and was interpreted by myself showing no acute process. CT interpreted by me (1pt min.). @ -None done U/S interpreted by me (1pt. min.). @ -None done What testing was considered but not performed or refused? (CT, X-rays, U/S, l abs)? Why? @ -None What meds were considered but not given or refused? Why? @ -None Did you discuss the management of the patient with other professionals (professionals i.e. , PA, [employer], lab, RT, psych nurse, case management social worker, marine service manager, teacher, immigration services officer, medical case worker)? Give summary @ -No Was smoking cessation discussed for >3mins.? @ -No Was critical care preformed (if so, how long)? @ -No Were there social determinants of health that impacted care today? How? (Homelessness, low income, unemployed, alcoholism, drug addiction, transportation, low edu. Level, literacy, decrease access to med. care, half-way, rehab)? @ -No Was there de-escalation of care discussed even if they declined (Discuss DNR or withdrawal of care, Hospice)? DNR status @ -No What co-morbidities impacted this encounter? (DM, HTN, Smoking, COPD, CAD, Cance r, CVA, ARF, Chemo, Hep., AIDS, mental health diagnosis, sleep apnea, morbid obesity)? @ -Hypertension Was patient admitted / discharged? Hospital course, mention meds given and route, prescriptions, significant lab abnormalities, going to OR and other pertinent info. @ -The patient was seen and evaluated emergency department. Physical exam, the patient was resting in bed without any acute distress. Vital signs admission were stable. Laboratory workup, chest x-ray and EKG were obtained. All workup was negative and the patient likely had orthostatic hypotension secondary to quickly standing up from supine, laying in bed. The patient was advised to slowly get up out of bed and to monitor his symptoms. The patient was advised to follow-up with his primary care physician for further workup and evaluation and to report back to the emergency department if his pain or symptoms became acutely worse. The patient was agreeable to this and all his questions were answered appropriately. The patient was discharged home in stable condition. Undiagnosed new problem with uncertain prognosis? @ -No Drug Therapy requiring intensive monitoring for toxicity (Heparin, Nitro, Insul in, Cardizem)? @ -No Were any procedures done? @ -No Diagnosis/symptom? @ -Orthostatic hypotension, resolved Acute, or Chronic, or Acute on Chronic? @ -Acute Uncomplicated (without systemic symptoms) or Complicated (systemic symptoms)? @ -Uncomplicated Side effects of treatment? @ -No Exacerbation, Progression, or Severe Exacerbation? @ -No Poses a threat to life or bodily function? How? (Chest pain, [place], [place], pneumonia, PE, COPD, DKA, ARF, appy, cholecystitis, CVA, Diverticulitis, Homicidal, Suicidal, threat to staff... and all critical care pts) @ -No - Lab Data Result diagrams: 08/26/22 04:25 08/26/22 04:25 Lab Results 08/26/22 08/26/22 08/26/22 Range/Units 04:25 04:25 04:25 WBC 5.2 (3.8-10.6) k/uL RBC 4.05 L (4.30-5.90) m/uL Hgb 12.0 L (13.0-17.5) gm/dL Hct 34.3 L (39.0-53.0) % MCV 84.6 (80.0-100.0) fL MCH 29.7 (25.0-35.0) pg MCHC 35.1 (31.0-37.0) g/dL RDW 12.5 (11.5-15.5) % Plt Count 206 (150-450) k/uL MPV 6.9 Neutrophils % 53 % Lymphocytes % 37 % Monocytes % 6 % Eosinophils % 2 % Basophils % 0 % Neutrophils # 2.8 (1.3-7.7) k/uL Lymphocytes # 1.9 (1.0-4.8) k/uL Monocytes # 0.3 (0-1.0) k/uL Eosinophils # 0.1 (0-0.7) k/uL Basophils # 0.0 (0-0.2) k/uL PT 10.0 (9.0-12.0) sec INR 0.9 (<1.2) APTT 24.6 (22.0-30.0) sec Sodium 138 (137-145) mmol/L Potassium 3.6 (3.5-5.1) mmol/L Chloride 103 (98-107) mmol/L Carbon Dioxide 27 (22-30) mmol/L Anion Gap 8 mmol/L BUN 32 H (9-20) mg/dL Creatinine 2.14 H (0.66-1.25) mg/dL Est GFR (CKD-EPI)AfAm 37 (>60 ml/min/1.73 sqM) Est GFR (CKD-EPI)NonAf 32 (>60 ml/min/1.73 sqM) Glucose 105 H (74-99) mg/dL Calcium 9.0 (8.4-10.2) mg/dL Total Bilirubin 0.3 (0.2-1.3) mg/dL AST 26 (17-59) U/L ALT 24 (4-49) U/L Alkaline Phosphatase 59 (38-126) U/L Troponin I (0.000-0.034) ng/mL Total Protein 7.0 (6.3-8.2) g/dL Albumin 3.9 (3.5-5.0) g/dL 08/26/22 Range/Units 04:25 WBC (3.8-10.6) k/uL RBC (4.30-5.90) m/uL Hgb (13.0-17.5) gm/dL Hct (39.0-53.0) % MCV (80.0-100.0) fL MCH (25.0-35.0) pg MCHC (31.0-37.0) g/dL RDW (11.5-15.5) % Plt Count (150-450) k/uL MPV Neutrophils % % Lymphocytes % % Monocytes % % Eosinophils % % Basophils % % Neutrophils # (1.3-7.7) k/uL Lymphocytes # (1.0-4.8) k/uL Monocytes # (0-1.0) k/uL Eosinophils # (0-0.7) k/uL Basophils # (0-0.2) k/uL PT (9.0-12.0) sec INR (<1.2) APTT (22.0-30.0) sec Sodium (137-145) mmol/L Potassium (3.5-5.1) mmol/L Chloride (98-107) mmol/L Carbon Dioxide (22-30) mmol/L Anion Gap mmol/L BUN (9-20) mg/dL Creatinine (0.66-1.25) mg/dL Est GFR (CKD-EPI)AfAm (>60 ml/min/1.73 sqM) Est GFR (CKD-EPI)NonAf (>60 ml/min/1.73 sqM) Glucose (74-99) mg/dL Calcium (8.4-10.2) mg/dL Total Bilirubin (0.2-1.3) mg/dL AST (17-59) U/L ALT (4-49) U/L Alkaline Phosphatase (38-126) U/L Troponin I <0.012 (0.000-0.034) ng/mL Total Protein (6.3-8.2) g/dL Albumin (3.5-5.0) g/dL Disposition Clinical Impression: Orthostatic hypotension Disposition: HOME SELF-CARE Condition: Stable Instructions (If sedation given, give patient instructions): Syncope in Older Adults (ED) Is patient prescribed a controlled substance at d/c from ED?: No Referrals: José Samuels MD [Primary Care Provider] - 1-2 days Time of Disposition: 05:30
[2022-08-26 05:09] LABS: INR 0.9 (<1.2); Partial Thromboplastin Time 24.6 sec (22.0-30.0)
[2022-08-26 05:19] LABS: Albumin 3.9 g/dL (3.5-5.0); Potassium 3.6 mmol/L (3.5-5.1); Total Bilirubin 0.3 mg/dL (0.2-1.3)
[2022-08-26 06:40] VITALS: BP 116/53; PULSE 68
== END 2022-08-26 06:20 | disposition home or self-care (01) ==
LOC: EC 03:55
DX: I95.1 Orthostatic hypotension (principal); I10 Essential (primary) hypertension; E78.5 Hyperlipidemia, unspecified; Z79.899 Other long term (current) drug therapy
CPT/HCPCS: 36415; 71046; 80053; 84484; 85025; 85610; 85730; 93005; 99285

== ENCOUNTER → 2024-11-18 | Outpatient (CLI) | payer OTHER ==
[2024-11-18 14:25] LABS: African American GFR (CKD) 46 (>60 ml/min/1.73 sqM); Blood Urea Nitrogen 23 mg/dL (9-20); Non-African American GFR(CKD) 40 (>60 ml/min/1.73 sqM)
--- NOTE | 2024-11-18 15:12 | CT ---
CT thorax with contrast HISTORY: Pulmonary nodule. COMPARISON: CTA chest dated 12/28/2021. TECHNIQUE: Multiple axial images are obtained through the thorax following IV contrast. There is a spiculated growing nodule in the right lower lobe medially. It has increased from 9.9 mm t o 13.7 mm and is highly suspicious for malignancy. There is an additional nodule in the right lower l obe which has increased from 5.9 to 9.0 mm and may represent a satellite malignancy. There are a few additional stable right upper lobe pulmonary nodules. There are no suspicious left lung nodules. There is no airspace consolidation or abnormal interstitial density. There is no pleural effusion or pneumothorax. The ascending thoracic aortic aneurysm is increased from 4.5 to 4.7 cm. There is no cardiomegaly. There is no mediastinal, hilar or axillary adenopathy. Limited scanning through the upper abdomen reveals no gross abnormality. There are no focal osseous lesions. IMPRESSION: 1. 2 growing nodules in the right lower lobe highly suspicious for malignancy. PET scan or tissue stevan pling is recommended. 2. Growing thoracic aortic aneurysm from 4.5 to 4.7 cm. [facility], , 11/18/2024 3:10 PM
== END | disposition home or self-care (01) ==
LOC: RADCTMAIN 13:37
PROVIDERS: ATTEND Family Medicine
DX: R91.8 Other nonspecific abnormal finding of lung field (principal); I71.20 Thoracic aortic aneurysm, without rupture, unspecified
CPT/HCPCS: 82565; 84520; 71260; 36415; Q9967